=== PATIENT | female | born 1960 | race Two or more races ===

== ENCOUNTER 2017-08-24 09:07 | Emergency (ER) | payer MEDICAID ==
[2017-08-24 09:15] VITALS: PULSE 89; TEMP 97.7
--- NOTE | 2017-08-24 09:37 | EDPHY ---
H & P Stated Complaint: back pain Time Seen by Provider: 08/24/17 09:37 - Personal History Current Tetanus/Diphtheria Vaccine: Yes - Medical/Surgical History Hx Asthma: No Hx Chronic Respiratory Disease: No Hx Diabetes: No Hx Cardiac Disease: No Hx Renal Disease: No Hx Cirrhosis: No Hx Alcoholism: No Hx HIV/AIDS: No Hx Splenectomy or Spleen Trauma: No Other PMH: RA, gallbladder - Social History Smoking Status: Never smoked Constitutional: Initial Vital Signs Temperature (C) 36.5 C 08/24/17 09:14 Heart Rate 89 08/24/17 09:14 Respiratory Rate 14 08/24/17 09:14 Blood Pressure 117/82 H 08/24/17 09:14 O2 Sat (%) 90 L 08/24/17 09:14 O2 Delivery Mode Room Air O2 (L/minute) 2 Allergies/Adverse Reactions: prochlorperazine edisylate [From Compazine] Allergy (Verified 08/24/17 09:14) Other-Enter Comments prochlorperazine maleate [From Compazine] Allergy (Verified 08/24/17 09:14) Other-Enter Comments Sulfa (Sulfonamide Antibiotics) Allergy (Verified 08/24/17 09:14) Home Medications: Medication Instructions Recorded Cyclobenzaprine [Flexeril 10 MG 10/07/12 (*)] Methotrexate Sodium [Methotrexate] mg PO 10/07/12 Docusate Sodium [Colace 100 MG (*)] 100 mg PO BID PRN #30 cap 12/09/14 Folic Acid [Folic Acid 1 MG (*)] 12/09/14 Hydrocodone/APAP 5/325 [Lindon 1 - 2 tab PO Q4PRN PRN #20 tab 12/09/14 5/325 (*)] Abatacept [Orencia] 04/18/16 Fluticasone Nasal [Flonase Nasal 2 sprays NASAL DAILY #1 mdi 04/18/16 [place] (RX)] Hyoscyamine 04/18/16 Meclizine HCl [Meclizine HCl 25 mg 25 mg PO TID PRN #20 tab 04/18/16 (RX,OTC)] Omeprazole 04/18/16 Ranitidine HCl [Zantac] 04/18/16 predniSONE [Prednisone] 04/18/16 methylPREDNISolone [Medrol Dose 1 each PO AD #1 ea 08/24/17 Ambrocio] oxyCODONE IR [Oxycodone Ir (*)] 5 - 10 mg PO Q6 PRN #20 tab 08/24/17 Medical Decision Making ED Course/Re-evaluation: CHIEF COMPLAINT: Back pain HISTORY OF PRESENT ILLNESS: 57-year-old female whose has lymphoma. He got chemotherapy yesterday. He felt somewhat lightheaded after his chemotherapy and this patient went to grab him so he did not fall and felt a pop in her lower back. She denies radiation a radiculopathy. She denies any bowel or bladder dysfunction. She denies any difficulty walking except for pain. REVIEW OF SYSTEMS: A 10 point review of systems was performed and is negative with the exception of the elements mentioned in the history of present illness. PHYSICAL EXAM: HR, BP, O2 Sat, RR. Temp noted General Appearance: Alert, well hydrated, appropriate, and non-toxic appearing. Head: Atraumatic without scalp tenderness or obvious injury Eyes: Pupils equal, round, reactive to light and accommodation, EOMI, no trauma , no injection. Ears: Clear bilaterally, no perforation, normal landmarks Nose: Atraumatic, no rhinorrhea, clear. Throat: There is no erythema or exudates, no lesions, normal tonsils, mucus membranes moist. Neck: Supple, 2+ carotid upstroke, nontender, no lymphadenopathy. Respiratory: No retractions, no distress, no wheezes, and no accessory muscle use. Lungs are clear to auscultation bilaterally. Cardiovascular: Regular rate and rhythm, no murmurs, rubs, or gallops. Bilateral carotid, radial, dorsalis pedis, and posterior tibial pulses intact. Good capillary refill all extremities. Gastrointestinal: Abdomen is soft, nontender, non-distended, no masses, no rebound, no guarding, no peritoneal signs. Musculoskeletal: Normal active ROM of all extremities, atraumatic. Neurological: Alert, appropriate, and interactive. The patient has normal DTRs and non-focal cranial nerves, motor, sensory, and cerebellar exam. Skin: No rashes, good turgor, no nodules on palpation. 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 MEDICAL DECISION MAKING: This patient had an acute injury an acute pop in her back while helping lift her . She has no radicular symptoms. She has no bowel or bladder dysfunction. I will provide her with a Medrol Dosepak and some pain medicine she will follow up with her doctor. Departure - Departure Disposition: Home, Routine, Self-Care Clinical Impression: Back pain Qualifiers: Back pain location: low back pain Chronicity: acute Back pain laterality: midline Sciatica presence: without sciatica Qualified Code(s): M54.5 - Low back pain Condition: Good Instructions: Low Back Strain (ED) Referrals: Patient,NotPresent [Primary Care Provider] - As per Instructions Prescriptions: methylPREDNISolone [Medrol Dose Ambrocio] 1 each PO AD #1 ea oxyCODONE IR [Oxycodone Ir (*)] 5 - 10 mg PO Q6 PRN #20 tab PRN Reason: Pain, Severe
[2017-08-24 10:02] VITALS: BP 149/90; RESP 16; O2SAT 93
== END 2017-08-24 10:02 | disposition home or self-care (01) ==
LOC: EDUNIT#
DX: M54.5 Low back pain (principal)